=== PATIENT | female | born 1975 | race Native Hawaiian/Other Pacific Islander ===

== ENCOUNTER 2021-07-16 11:08 | Outpatient (CLI) | payer OTHER | END 2021-07-16 19:06 | disposition home or self-care (01) | LOC: US 11:08 | PROVIDERS: ATTEND Nurse Practitioner Family | DX: I10 Essential (primary) hypertension (principal); M79.662 Pain in left lower leg; M79.661 Pain in right lower leg; R63.5 Abnormal weight gain; R60.1 Generalized edema ==

== ENCOUNTER 2021-08-09 17:00 | Observation (INO) | payer OTHER ==
[~2021-08-09] VITALS: Ht 149.9 cm; Wt 110.9 kg
[2021-08-09 17:03] VITALS: BP 177/94; TEMP 97.4
[2021-08-09 17:09] LABS: PLATELET COUNT 282 K/uL (152-353)
[2021-08-09 17:13] LABS: POTASSIUM 3.8 mmol/L (3.6-5.2)
[2021-08-09 17:32] VITALS: BP 150/92
[2021-08-09 19:00] VITALS: BP 144/85
[2021-08-09 20:00] VITALS: BP 185/88
[2021-08-09 21:00] VITALS: BP 159/82
[2021-08-09 22:00] VITALS: BP 147/82
[2021-08-10] VITALS (7 sets, daily range): BP systolic 107–151; BP diastolic 55–88; TEMP 97.5–98.7; Ht 149.9 cm; Wt 110.9 kg
[2021-08-10 04:06] LABS: PLATELET COUNT 261 K/uL (152-353)
[2021-08-10 04:33] LABS: POTASSIUM 4.1 mmol/L (3.6-5.2)
[2021-08-10] MEDS ORDERED: MOBIC15 MG PO (12:05)
[2021-08-10] MEDS ORDERED: CYCLOBENZAPRINE10 MG PO (12:08)
[2021-08-10] MEDS ORDERED: MONTELUKAST SOD10 MG PO (12:09)
[2021-08-10] MEDS ORDERED: ALBUTEROL108 MCG/AC INH (12:10)
[2021-08-10] MEDS ORDERED: FLUOXETINE20 MG PO (12:12)
[2021-08-10] MEDS ORDERED: ARIPIPRAZOLE10 MG PO (12:55)
[2021-08-10] MEDS ORDERED: ESCITALOPRAM20 MG PO (12:56)
[2021-08-10] MEDS ORDERED: ZESTORETIC PO (12:58)
[2021-08-10] MEDS ORDERED: HYDR50CA21 PO (13:00)
[2021-08-11 04:15] VITALS: BP 118/69; TEMP 98.6
[2021-08-11 08:00] VITALS: BP 118/69; TEMP 97.8
== END 2021-08-11 13:17 | disposition home or self-care (01) ==
LOC: ED 17:00 → MED/SURG 21:55
PROVIDERS: Emergency Medicine; ADMIT Internal Medicine; ATTEND Internal Medicine
DX: R55 Syncope and collapse (principal); I10 Essential (primary) hypertension; G47.33 Obstructive sleep apnea (adult) (pediatric); E11.9 Type 2 diabetes mellitus without complications; Z72.0 Tobacco use; F99 Mental disorder, not otherwise specified
CPT/HCPCS: 36415; 36600; 80053; 81000; 82533; 82805; 84439; 84443; 84484; 85027; 85379; 85610; 87635; 94640; 94664; 99220; 99284; G0378; Q9963; U0003

== ENCOUNTER 2021-10-28 16:17 | Emergency (ER) | payer OTHER ==
[~2021-10-28] VITALS: Ht 149.9 cm; Wt 110.7 kg
[~2021-10-28 16:17] MED LIST: ALBUTEROL108 MCG/AC INH; ARIPIPRAZOLE10 MG PO; CYCLOBENZAPRINE10 MG PO; ESCITALOPRAM20 MG PO; FLUOXETINE20 MG PO; HYDR50CA21 PO; MOBIC15 MG PO; MONTELUKAST SOD10 MG PO; ZESTORETIC PO
[2021-10-28 16:19] VITALS: TEMP 98.6
[2021-10-28 17:06] LABS: PLATELET COUNT 267 K/uL (152-353)
[2021-10-28 17:15] LABS: POTASSIUM 4.6 mmol/L (3.6-5.2)
[2021-10-28 18:48] VITALS: BP 141/87
== END 2021-10-28 18:49 | disposition home or self-care (01) ==
LOC: ED 16:17
PROVIDERS: Emergency Medicine Emergency Medical Services
DX: J44.1 Chronic obstructive pulmonary disease with (acute) exacerbation (principal); F17.210 Nicotine dependence, cigarettes, uncomplicated; Z20.822 Contact with and (suspected) exposure to COVID-19
CPT/HCPCS: 36415; 80053; 81000; 83735; 84484; 85027; 87502; 87635; 93005; 96360; 96365; 96375; 99284; J1885; J3490; U0003